=== PATIENT | female | born 1990 | race American Indian/Alaskan Native ===

== ENCOUNTER 2019-05-16 00:41 | Emergency (ER) | payer MEDICAID, OTHER ==
[2019-05-16 00:47] VITALS: BP 133/84
[2019-05-16 01:32] LABS: HCG Qualitative,Urine Negative (Negative)
[2019-05-16] MEDS ORDERED: IBUPROFEN PO ONE (01:57)
[2019-05-16] MEDS ORDERED: TYLENOL PO ONE (01:57)
[2019-05-16] MEDS ORDERED: ZOFRAN ODT PO ONE (01:58)
--- NOTE | 2019-05-16 02:17 | XRay Report ---
RIGHT ANKLE, 2 VIEWS, 05/16/2019 INDICATION / CLINICAL INFORMATION: fall, right ankle pain. COMPARISON: None available. FINDINGS: 2 views do not demonstrate a fracture or dislocation. IMPRESSION: Negative for fracture, dislocation. Signer Name: Fern Dickerson MD Signed: 05/16/2019 2:13 AM Workstation Name: [id number]
--- NOTE | 2019-05-16 02:18 | XRay Report ---
RIGHT HIP, SINGLE VIEW, 05/16/2019 INDICATION / CLINICAL INFORMATION: fall, right hip pain. COMPARISON: None available. FINDINGS: Single view of the right hip does not demonstrate fracture or dislocation. IMPRESSION: No suggestion of fracture or dislocation on this single view. Signer Name: Fern Dickerson MD Signed: 05/16/2019 2:14 AM Workstation Name: [id number]
--- NOTE | 2019-05-16 02:30 | Emergency Department Report ---
ED Lower Extremity HPI - General Chief Complaint: Extremity Injury, Lower Stated Complaint: RT ANKLE, FOOT, AND LEG PAIN Source: patient Mode of arrival: Ambulatory Limitations: Physical Limitation - History of Present Illness MD Complaint: hip injury (right), ankle injury (right) -: Sudden, hour(s) (6) Injury: Hip: Right, Ankle: Right Type of Injury: inversion Place: home Severity: severe Severity scale (0 -10): 8 Improves With: nothing Worsens With: weight bearing, movement, palpation Context: fall, other (slipped and twisted her right ankle and fell down in the shower) Associated Symptoms: swelling, able to partially bear weight. denies: snap/pop sensation, numbness, tingling - Related Data Previous Rx's Medication Instructions Recorded Last Taken Type Ibuprofen [Motrin] 800 mg PO Q8HR PRN #20 tablet 05/16/19 Unknown Rx tiZANidine [Zanaflex 4mg TAB] 4 mg PO Q8H PRN #21 tablet 05/16/19 Unknown Rx traMADol [Ultram] 50 mg PO Q6HR PRN #15 tablet 05/16/19 Unknown Rx Allergies Allergy/AdvReac Type Severity Reaction Status Date / Time No Known Allergies Allergy Unverified 10/22/15 12:31 ED Review of Systems ROS: Stated complaint: RT ANKLE, FOOT, AND LEG PAIN Other details as noted in HPI Constitutional: denies: chills, fever Eyes: denies: eye pain, eye discharge, vision change ENT: denies: ear pain, throat pain Respiratory: denies: cough, shortness of breath, wheezing Cardiovascular: denies: chest pain, palpitations Endocrine: no symptoms reported Gastrointestinal: denies: abdominal pain, nausea, diarrhea Genitourinary: denies: urgency, dysuria, discharge Musculoskeletal: joint swelling (right ankle ), arthralgia (right ankle and hip). denies: back pain Skin: denies: rash, lesions Neurological: denies: headache, weakness, paresthesias Psychiatric: denies: anxiety, depression Hematological/Lymphatic: denies: easy bleeding, easy bruising ED Past Medical Hx - Past Medical History Previous Medical History?: No - Surgical History Past Surgical History?: No - Social History Smoking Status: Never Smoker Substance Use Type: None - Medications Home Medications: Home Medications Medication Instructions Recorded Confirmed Last Taken Type Ibuprofen [Motrin] 800 mg PO Q8HR PRN #20 tablet 05/16/19 Unknown Rx tiZANidine [Zanaflex 4mg TAB] 4 mg PO Q8H PRN #21 tablet 05/16/19 Unknown Rx traMADol [Ultram] 50 mg PO Q6HR PRN #15 tablet 05/16/19 Unknown Rx ED Physical Exam - General Limitations: Physical Limitation General appearance: alert, in no apparent distress - Head Head exam: Present: atraumatic, normocephalic, normal inspection - Eye Eye exam: Present: normal appearance, PERRL, EOMI. Absent: scleral icterus, conjunctival injection, nystagmus Pupils: Present: normal accommodation - ENT ENT exam: Present: normal exam, normal orophraynx, mucous membranes moist, TM's normal bilaterally, normal external ear exam - Neck Neck exam: Present: normal inspection, full ROM. Absent: tenderness, lymphadenopathy, thyromegaly - Respiratory Respiratory exam: Present: normal lung sounds bilaterally. Absent: respiratory distress, wheezes, rales, chest wall tenderness, accessory muscle use, decreased breath sounds - Cardiovascular Cardiovascular Exam: Present: regular rate, normal rhythm, normal heart sounds. Absent: systolic murmur, diastolic murmur, rubs, gallop - GI/Abdominal GI/Abdominal exam: Present: soft, normal bowel sounds. Absent: distended, tenderness, guarding, hyperactive bowel sounds, organomegaly, mass - Rectal Rectal exam: Present: deferred - Extremities Exam Extremities exam: Present: normal inspection, tenderness (Palpable right ankle tenderness with mild swelling and limited ROM due to pain), normal capillary refill. Absent: full ROM - Back Exam Back exam: Present: normal inspection, full ROM. Absent: tenderness, CVA tenderness (R), CVA tenderness (L), muscle spasm, paraspinal tenderness, vertebral tenderness - Neurological Exam Neurological exam: Present: alert, oriented X3, CN II-XII intact, normal gait, reflexes normal - Psychiatric Psychiatric exam: Present: normal affect, normal mood - Skin Skin exam: Present: warm, dry, intact, normal color. Absent: rash ED Course Vital Signs 05/16/19 00:44 Temperature 98.8 F Pulse Rate 95 H Respiratory 16 Rate Blood Pressure 133/84 O2 Sat by Pulse 99 Oximetry - Reevaluation(s) Reevaluation #1: 05/16/19 02:29 The patient is alert and oriented 3 and is not in distress with normal vital signs. Patient was treated for pain in the ED and right ankle x-ray shows no acute fractures or subluxations. Right hip x-ray shows no acute fractures or dislocations. Right ankle was splinted with Landen wrap splint and patient fitted with crutches. Patient was discharged home on pain medications and muscle relaxants, and advised to follow-up with her primary care physician in 5-7 days for reevaluation or return to the ED immediately if symptoms get worse. ED Lower Extremity MDM - Radiology Data Radiology results: report reviewed, image reviewed Right ankle x-ray: No acute fractures Right hip x-ray shows no acute fractures - Medical Decision Making The patient is alert and oriented 3 and is not in distress with normal vital signs. Patient was treated for pain in the ED and right ankle x-ray shows no acute fractures or subluxations. Right hip x-ray shows no acute fractures or dislocations. Right ankle was splinted with Landen wrap splint and patient fitted with crutches. Patient was discharged home on pain medications and muscle relaxants, and advised to follow-up with her primary care physician in 5-7 days for reevaluation or return to the ED immediately if symptoms get worse. - Differential Diagnosis Right ankle sprain; Right hip contusion; Right ankle fracture Critical care attestation.: If time is entered above; I have spent that time in minutes in the direct care of this critically ill patient, excluding procedure time. ED Disposition Clinical Impression: Contusion of right hip, initial encounter Severe sprain of right ankle Qualifiers: Encounter type: initial encounter Qualified Code(s): S93.401A - Sprain of unspecified ligament of right ankle, initial encounter Disposition: TO HOME OR SELFCARE Is pt being admited?: No Does the pt Need Aspirin: No Condition: Stable Instructions: Ankle Sprain (ED), Hip Sprain (ED), Musculoskeletal Pain (ED) Additional Instructions: Take medications with food, drink plenty of fluids and rest with your primary care physician in 5-7 days for reevaluation. Return to the ED immediately if symptoms get worse. Prescriptions: Ibuprofen [Motrin] 800 mg PO Q8HR PRN #20 tablet PRN Reason: Pain , Severe (7-10) traMADol [Ultram] 50 mg PO Q6HR PRN #15 tablet PRN Reason: Pain tiZANidine [Zanaflex 4mg TAB] 4 mg PO Q8H PRN #21 tablet PRN Reason: Spasms Referrals: [facility] [Outside] - 3-5 Days Time of Disposition: 02:33 Print Language: SENEGALESE
== END 2019-05-16 02:40 | disposition home or self-care (01) ==
LOC: ED 00:41
DX: S93.401A Sprain of unspecified ligament of right ankle, initial encounter (principal); S70.01XA Contusion of right hip, initial encounter; Z79.899 Other long term (current) drug therapy; W18.2XXA Fall in (into) shower or empty bathtub, initial encounter; Y93.89 Activity, other specified; Y92.89 Other specified places as the place of occurrence of the external cause; Y99.8 Other external cause status
CPT/HCPCS: 81025; Q0162